=== PATIENT | female | born 1975 | race Caucasian/White ===

== ENCOUNTER 2016-04-25 21:15 | Emergency (ER) | payer BC, OTHER ==
[~2016-04-25] VITALS: Ht 167.6 cm; Wt 106.8 kg
[~2016-04-25 21:15] MED LIST: ALPR0.5T PO; ONDA4TAB46 PO; PARO20TA4 PO; ROPI4TAB3 PO
[2016-04-25 21:17] VITALS: BP 141/93; PULSE 85; TEMP 37.3; O2SAT 98; Ht 167.6 cm; Wt 106.8 kg
[2016-04-25] MEDS ORDERED: HYDR-3419 PO (21:41)
[2016-04-25] MEDS ORDERED: IBUP-1050 PO (21:41)
--- NOTE | 2016-04-25 22:00 | EMERGENCY ROOM VISIT NOTE ---
ED Visit Note First contact with patient: 21:41 CHIEF COMPLAINT: Wound dehiscence right foot HISTORY OF PRESENT ILLNESS: This 41-year-old female presents the ER with chief complaint that her incision opened up on her right foot. The patient states that she had surgery on her right foot by Dr. Guy a little over 2 weeks ago. She had the sutures removed on which was 3 days ago. She states that this evening she accidentally put pressure onto the forefoot and then noticed that her wound opened up and there was a small amount of blood. The patient states she came right to the emergency room. REVIEW OF SYSTEMS:6 system review was performed and was negative unless stated otherwise in history of present illness. PMH: The patient is healthy; asthma, fibromyalgia, anxiety, depression, L5-S1 fusion, left elbow surgery, right foot surgery SOCIAL HISTORY: Patient lives with her boyfriend. The patient admits to tobacco use but denies any alcohol use PHYSICAL EXAM: Vital Signs: Were reviewed Reviewed Nurse's notes. GENERAL: 41- year-old white female appears in no acute distress. MENTAL Status: Alert and oriented 3. RIGHT FOOT: There are external pins sticking out from the distal end of the second and third phalanx. There are 2 incisions over the dorsal aspect of the second and third digits which are intact. There is a third incision on the dorsal aspect of the foot. Approximately one and a half centimeters of the incision has dehisced but this is just a superficial layer. There is no active bleeding at this time. There is no surrounding erythema or edema. There is no purulent drainage. EMERGENCY DEPARTMENT COURSE: The patient was evaluated. Steri-Strips were applied to the incision. A bandage was applied to the right foot. The patient was discharged home in stable condition DIAGNOSIS: Wound dehiscence right foot DISCHARGE INSTRUCTIONS & TREATMENT: Call Dr. Guy tomorrow to inform him of the wound dehiscence. Keep your scheduled appointment with Dr. Guy on or he may want to see your earlier based on tonight's visit. Problem List Medical Problems: (1) back fusion Status: Resolved (2) Bronchitis Status: Resolved (3) Chronic sinusitis Status: Chronic (4) Colitis Status: Resolved (5) Colitis Status: Resolved (6) Dehydration Status: Resolved (7) Dehydration Status: Resolved (8) Depression Status: Chronic (9) Diarrhea Status: Resolved (10) Diarrhea Status: Resolved (11) fibromyalgia Status: Chronic (12) Flank pain, acute Status: Resolved (13) Kidney infection Status: Resolved (14) Kidney stone Status: Chronic (15) Leukocytosis Status: Resolved (16) metabolic disorder Status: Chronic (17) Pyelonephritis Status: Resolved (18) Pyelonephritis Status: Resolved (19) UTI (urinary tract infection) Status: Resolved (20) Vomiting Status: Resolved Current/Historical Medications Scheduled Ibuprofen (Advil), 400-600 MG PO Q6H Paroxetine Hcl (Paxil), 10 MG PO DAILY Ropinirole (Requip), 4 MG PO HS Scheduled PRN Alprazolam (Xanax), 0.5 MG PO BID PRN for Anxiety Hydrocodon/Acetaminophen 5MG/300MG (Vicodin (5MG/300MG)), 1 TAB PO Q4H PRN for Pain Ondansetron Hcl (Zofran), 4 MG PO Q6 PRN for Nausea Allergies Coded Allergies: Acetaminophen (Verified Allergy, Mild, Nightmares, 04/25/16) Oxycodone (Verified Allergy, Mild, Nightmares, 04/25/16) Ciprofloxacin (Verified Allergy, Unknown, H/A,CONFUSION, CHEST TIGHTNESS, NAUSEA, 04/25/16) HEADACHE, CONFUSION, SEVERE STIFFNESS NECK/SHOULDERS, STRANGE SKIN SENSATIONS, CHEST TIGHTNESS, DIFFICULTY BREATHING, NAUSEA Vital Signs Date Time Temp Pulse Resp B/P Pulse Ox O2 Delivery O2 Flow Rate FiO2 04/25/16 21:17 37.3 85 16 141/93 98 Room Air Departure Information Referrals Rach Lawson DO (PCP) Patient Instructions My [facility]
== END 2016-04-25 22:11 | disposition home or self-care (01) ==
LOC: C.EDB 21:16 → C.EDD 22:11
DX: T81.30XA Disruption of wound, unspecified, initial encounter (principal); X58.XXXA Exposure to other specified factors, initial encounter; J45.909 Unspecified asthma, uncomplicated; Z98.1 Arthrodesis status; Z98.890 Other specified postprocedural states; Z72.0 Tobacco use; F32.9 Major depressive disorder, single episode, unspecified; Z87.440 Personal history of urinary (tract) infections

== ENCOUNTER 2016-05-11 12:09 | Emergency (ER) | payer BC ==
[~2016-05-11] VITALS: Ht 167.6 cm; Wt 107.5 kg
[~2016-05-11 12:09] MED LIST changes: +HYDR-3419 PO; +IBUP-1050 PO
[2016-05-11 12:12] VITALS: TEMP 36.8; Ht 167.6 cm; Wt 107.5 kg
[2016-05-11] MEDS ORDERED: ONDANSETRON INJ 2 MG/ML 2 ML VIAL IV STA (12:37)
[2016-05-11] MEDS ORDERED: HYDROmorphone INJ 1 MG/ML SYR IV STA ×2 (12:37→14:26)
--- NOTE | 2016-05-11 13:44 | DIAGNOSTIC IMAGING REPORT ---
LUMBAR SPINE 5 VIEWS HISTORY: Trauma. Pain. LBP eval for fx COMPARISON: None. FINDINGS: There is no fracture. No subluxation. Disc spaces are preserved. Postoperative changes consistent with an L5-S1 fusion. IMPRESSION: No acute process. Electronically signed by: Xavier Schilling M.D. 05/11/2016 1:43 PM Dictated Date/Time: 05/11/2016 1:41 PM
[2016-05-11] MEDS ORDERED: METHYLPREDNISOLONE 125 MG VIAL IV STA (14:26)
[2016-05-11] MEDS ORDERED: HYDR-3419 PO (15:28)
[2016-05-11] MEDS ORDERED: PRED20TA PO (15:46)
[2016-05-11] MEDS ORDERED: SKL800 PO (15:46)
[2016-05-11 16:01] VITALS: BP 129/87; PULSE 57; O2SAT 99
--- NOTE | 2016-05-11 17:34 | EMERGENCY ROOM VISIT NOTE ---
History Report prepared by Bo: Alida Chavez Under the Supervision of: Dr. Bandar Barba M.D. First contact with patient: 12:27 Chief Complaint: BACK PAIN Stated Complaint: BACK PAIN History of Present Illness The patient is a 41 year old female who presents to the Emergency Room with complaints of worsening right lower back pain that began about 2 weeks ago. The pain radiates through her right leg down to her knee. The pain is sharp and is worse with movement. The patient reports that she was reaching for something about 2 weeks ago and felt a pinch. Since then, she has had pain to her right lower back. Yesterday and today, her pain worsened significantly in the mornings. Yesterday the patient had an episode of slight bladder incontinence while coughing, but denies any bladder incontinence otherwise. This morning, she took a left over Vicodin from a previous surgery. En route to the ED, she was given 100 mcg Fentanyl. She had some relief of her pain but states that it is now starting to increase again. The patient has a history of an L5-S1 spinal fusion in 2000. She has been having lower back pain on and off since the surgery. She notes that she was taken off of pain medications for her chronic back issues last year. Denies fevers, numbness to her legs or groin, weakness, loss of control of her bowel, or other complaints. She denies any saddle anesthesia. Source of History: patient Onset: 2 weeks ago Position: back (right lower) Quality: sharp Timing: worsening Modifying Factors (Worsening): movement Modifying Factors (Relieving): narcotics Associated Symptoms: No fevers, No numbness, No weakness Note: Other symptoms: bladder incontinence with coughing Review of Systems See HPI for pertinent positives & negatives. A total of 10 systems reviewed and were otherwise negative. Past Medical & Surgical Medical Problems: (1) back fusion (2) Bronchitis (3) Chronic sinusitis (4) Colitis (5) Colitis (6) Dehydration (7) Dehydration (8) Depression (9) Diarrhea (10) Diarrhea (11) fibromyalgia (12) Flank pain, acute (13) Kidney infection (14) Kidney stone (15) Leukocytosis (16) metabolic disorder (17) Pyelonephritis (18) Pyelonephritis (19) UTI (urinary tract infection) (20) Vomiting Family History Cancer FH: CAD (coronary artery disease) FH: kidney disease Heart disease Hypertension Kidney disease Kidney stone Lung disease Social History Smoking Status: Current Every Day Smoker Alcohol Use: occasionally Drug Use: none Marital Status: single Housing Status: lives alone Occupation Status: employed Current/Historical Medications Scheduled Ibuprofen (Advil), 400-600 MG PO Q6H Metaxalone (Skelaxin), 1 TAB PO TID Paroxetine Hcl (Paxil), 10 MG PO DAILY Prednisone (Prednisone), 0 PO DAILY Ropinirole (Requip), 4 MG PO HS Scheduled PRN Alprazolam (Xanax), 0.5 MG PO BID PRN for Anxiety Hydrocodon/Acetaminophen 5MG/300MG (Vicodin (5MG/300MG)), 1 TAB PO Q4H PRN for Pain Hydrocodon/Acetaminophen 5MG/300MG (Vicodin (5MG/300MG)), 1 TAB PO Q4H PRN for Pain Allergies Coded Allergies: Acetaminophen (Verified Allergy, Mild, Nightmares, 05/11/16) Oxycodone (Verified Allergy, Mild, Nightmares, 05/11/16) Ciprofloxacin (Verified Allergy, Unknown, H/A,CONFUSION, CHEST TIGHTNESS, NAUSEA, 05/11/16) HEADACHE, CONFUSION, SEVERE STIFFNESS NECK/SHOULDERS, STRANGE SKIN SENSATIONS, CHEST TIGHTNESS, DIFFICULTY BREATHING, NAUSEA Physical Exam Vital Signs Date Time Temp Pulse Resp B/P Pulse Ox O2 Delivery O2 Flow Rate FiO2 05/11/16 16:01 57 16 129/87 99 Room Air 05/11/16 14:17 52 18 102/54 100 Room Air 05/11/16 12:12 36.8 86 18 133/79 96 Room Air Physical Exam Constitutional: Vital signs reviewed. Eyes: Pupils are equal round reactive to light. Conjunctiva are noninjected. ENT: Pharynx is clear without erythema or exudate. Mucous membranes are moist. Neck supple without meningeal signs. Respiratory: Clear to auscultation bilaterally. Breath sounds are equal bilaterally. Cardiovascular: Regular rate and rhythm. No rubs or gallops. GI: Soft, nondistended and nontender. Bowel sounds are present. Musculoskeletal: No peripheral edema. Mild midline tenderness to the lumbar spine without step off or deformity. Right foot wrapped in a bandage, no signs of infection to the toes. Integumentary: No cyanosis. Neurological: The patient is awake and alert. No focal deficits. Motor and sensation is intact throughout the lower extremities. Psychiatric: Normal affect. Medical Decision & Procedures ER Provider Diagnostic Interpretation: Radiology results as stated below per my review and the radiologist's interpretation: LUMBAR SPINE 5 VIEWS HISTORY: Trauma. Pain. LBP eval for fx COMPARISON: None. FINDINGS: There is no fracture. No subluxation. Disc spaces are preserved. Postoperative changes consistent with an L5-S1 fusion. IMPRESSION: No acute process. Electronically signed by: Xavier Schilling M.D. 05/11/2016 1:43 PM Dictated Date/Time: 05/11/2016 1:41 PM Medications Administered Medications (Trade) Dose Ordered Sig/Danni Route Start Time Stop Time Status Last Admin Dose Admin Hydromorphone HCl (Dilaudid Inj) 1 mg NOW STAT IV 05/11/16 12:37 05/11/16 12:39 DC 05/11/16 13:01 1 MG Ondansetron HCl (Zofran Inj) 4 mg NOW STAT IV 05/11/16 12:37 05/11/16 12:39 DC 05/11/16 13:00 4 MG Hydromorphone HCl (Dilaudid Inj) 0.5 mg NOW STAT IV 05/11/16 14:26 05/11/16 14:28 DC 05/11/16 14:41 0.5 MG Methylprednisolone Sodium Succinate (Solu-Medrol IV) 125 mg NOW STAT IV 05/11/16 14:26 05/11/16 14:28 DC 05/11/16 14:41 125 MG ED Course 1231: The patient was evaluated in room C5. A complete history and physical exam was performed. 1237: Ordered Zofran Inj 4 mg IV, Dilaudid Inj 1 mg IV. 1425: I reassessed the patient. She is still having pain and is requesting muscle relaxant. 1426: Ordered Solu-Medrol 125 mg IV, Dilaudid Inj 0.5 mg IV. 1522: I reassessed the patient. She was feeling more comfortable and was able to sit upright. She is ready for discharge. Medical Decision This is a 41-year-old female who presents with low back pain. Differential diagnosis includes hardware failure, lumbar radiculopathy, compression fracture , pathologic fracture, strain. I did perform a limited focused review of portions of the patient's old chart on the electronic medical record. She was here on the of this month for wound dehiscence to her right foot. She was to follow up with Dr. Guy. She has a history of L5-S1 fusion. I did evaluate the patient as noted above. The patient is presenting with an exacerbation of her chronic low back pain. It started about 2 weeks ago when she try to bend over to pick something up. It has gotten worse over the past 2 mornings. She recently had foot surgery and had left over Vicodin from that and took it today without significant relief. She has no signs of cauda equina syndrome. She does state that she had an episode of bladder incontinence yesterday when coughing but denies having any incontinence or urinary symptoms today. The patient was treated with IV Dilaudid and Zofran. I did obtain x- rays of her lower back. There is no evidence of acute fracture or hardware failure. I did reassess the patient. She states she feels better but still has some pain. She was given Dilaudid 0.5 mg IV. She was also given Solu- Medrol IV. On reassessment she is able to sit upright and feeling better. She was advised follow up with her doctor. She was discharged with a prescription for Vicodin and Skelaxin and prednisone. She was given return instructions as outlined below. [place] Drug Monitoring Program Search Results: patient reviewed within database Drug Monitoring Findings: She received 5 days of hydrocodone on April 30. Impression Primary Impression: Acute exacerbation of chronic low back pain Scribe Attestation The scribe's documentation has been prepared under my direct and personally reviewed by me in its entirety. I confirm that the note above accurately reflects all work, treatment, procedures, and medical decision making performed by me. Departure Information Dispostion Home / Self-Care Prescriptions Prednisone (Prednisone) 20 Mg Tab 0 PO DAILY, #14 TAB 3 TABS DAILY FOR 2 DAYS, THEN 2 TABS DAILY FOR 2 DAYS, THEN 1 TAB DAILY FOR 2 DAYS, THEN 1/2 TAB DAILY FOR 2 DAYS. Prov: Bandar Barba M.D. 05/11/16 Metaxalone (Skelaxin) 800 Mg Tab 1 TAB PO TID, #15 TAB Prov: Bandar Barba M.D. 05/11/16 Hydrocodon/Acetaminophen 5MG/300MG (VICODIN (5MG/300MG)) 1 Tab Tab 1 TAB PO Q4H Y for Pain, #20 TAB Prov: Bandar Barba M.D. 05/11/16 Referrals Rach Lawson DO (PCP) Patient Instructions ED Back Pain Acute Chronic, My [facility] Additional Instructions You have been examined and treated today on an emergency basis only. This is not a substitute for, or an effort to provide, complete comprehensive medical care. It is impossible to recognize and treat all injuries or illnesses in a single emergency department visit. It is therefore important that you follow up closely with your physician. Call as soon as possible for an appointment. Return for worsening symptoms or if you develop fever, vomiting, abdominal pain , loss of control of your bowel or bladder, numbness or weakness to your legs, numbness to your private area, difficulty urinating, or any other concerning symptoms.
== END 2016-05-11 16:15 | disposition home or self-care (01) ==
LOC: EDBD 12:09 → C.EDC 12:11
DX: M54.5 Low back pain (principal); Z82.49 Family history of ischemic heart disease and other diseases of the circulatory system; F17.200 Nicotine dependence, unspecified, uncomplicated

== ENCOUNTER → 2016-09-08 | Outpatient (CLI) | payer BC ==
[~2016-09-08] MED LIST changes: -ONDA4TAB46 PO; +PRED20TA PO; +SKL800 PO
--- NOTE | 2016-09-08 09:37 | DIAGNOSTIC IMAGING REPORT ---
CHEST 2 VIEWS ROUTINE CLINICAL HISTORY: 41 years-old Female presenting with cough, acute bronchitis with bronchospasm. TECHNIQUE: PA and lateral views of the chest were obtained. COMPARISON: 11/30/2015. FINDINGS: Cardiomediastinal silhouette normal. Evidence of bronchial wall cuffing noted in the left lung. No focal infiltrate. Pleural spaces clear. Osseous structures and upper abdomen normal. IMPRESSION: 1. Nonspecific bronchial wall cuffing the left lung could indicate bronchitis/bronchiolitis. No focal infiltrate to suggest pneumonia. Electronically signed by: Alfa Pabon M.D. 09/08/2016 9:35 AM Dictated Date/Time: 09/08/2016 9:33 AM
[2016-09-08 11:19] LABS: ALB/GLOB RATIO 1.1 (0.9-2); ALKALINE PHOSPHATASE 78 U/L (45-117); ALT/SGPT 22 U/L (12-78); AST/SGOT 14 U/L (15-37); BLOOD UREA NITROGEN 17 mg/dl (7-18); BUN/CREATININE RATIO 20.2 (10-20); CALCIUM 8.7 mg/dl (8.5-10.1); CARBON DIOXIDE 25 mmol/L (21-32); CHLORIDE 107 mmol/L (98-107); CHOLESTEROL 225 mg/dl (0-200); CHOLESTEROL/HDL RATIO 4.2; CREATININE 0.83 mg/dl (0.60-1.20); GLUCOSE 119 mg/dl (70-99); HDL CHOLESTEROL 54 mg/dl; LDL CHOLESTEROL CALCULATED 139 mg/dl; SODIUM 137 mmol/L (136-145); TRIGLYCERIDES 159 mg/dl (0-150); VERY LOW DENSITY LIPOPROT CALC 32 mg/dl
[2016-09-08 11:45] LABS: ESTIMATED AVERAGE GLUCOSE 108 mg/dl; HA1C FLAG Normal (Normal)
== END | disposition home or self-care (01) ==
LOC: C.RADBC 09:00
PROVIDERS: ATTEND Physician Assistant
DX: J20.9 Acute bronchitis, unspecified (principal); R05 Cough